=== PATIENT | female | born 1985 | race Caucasian/White ===

== ENCOUNTER 2023-08-11 18:07 | Inpatient (IN) | payer OTHER, SELFPAY ==
--- NOTE | ~2023-08-11 | XR_ITS ---
EXAMINATION: PORTABLE CHEST 1 VIEW CLINICAL INFORMATION: Central line. COMPARISON: No recent pertinent prior studies are available for comparison. TECHNIQUE: Portable frontal view of the chest was obtained. FINDINGS: Lungs are hypoexpanded with basilar ectatic change. No significant effusion, edema, or pneumothorax. Right IJ central venous catheter tip overlying the proximal right atrium. Cardiac and mediastinal silhouettes within normal limits for size. No acute bony abnormality. XR/XR chest 1V IMPRESSION: Right IJ central venous catheter tip overlying the proximal right atrium. No pneumothorax. Hypoexpanded lungs with basilar atelectasis.
[2023-08-11 18:09] VITALS: BP 113/72; PULSE 105; RESP 18; TEMP 36.8; O2SAT 98; BMI 31.6
--- NOTE | 2023-08-11 18:10 | ED_ITS ---
HPI - General Adult General Chief complaint: ETOH/Substance Use Stated complaint: alcohol withdrawal Time Seen by Provider: 08/11/23 18:48 Source: patient Mode of arrival: ambulatory Limitations: no limitations History of Present Illness HPI narrative: Patient with history of alcohol abuse disorder since teenage drinks about 30 shots of vodka every day for last few days has decreased amount of vodka last drink was about 15 hours ago came to the ER as she was hallucinating and felt that she was in alcohol withdrawal patient does have history of alcohol withdrawal seizure but no seizure this time patient also been very nauseated and vomiting nonbloody patient's sister mom went to patient's house and found her very sleepy lethargic barely responsive Related Data Home Medications Medication Instructions Recorded Confirmed gabapentin 300 mg capsule 300 mg PO TID 08/12/23 multivitamin 1 tab PO DAILY 08/12/23 08/12/23 quetiapine 100 mg tablet 100 mg PO BEDTIME PRN Anxiety 08/12/23 08/12/23 Allergies Allergy/AdvReac Type Severity Reaction Status Date / Time lamotrigine [From LAMICTAL] Allergy Unknown HIVES Verified 08/11/23 18:17 oxycodone [From Percocet] Allergy Gastrointestinal Verified 08/11/23 18:19 Upset acetaminophen AdvReac Gastrointestinal Verified 08/11/23 18:19 Upset Review of Systems 2 Review of Systems: Yes all other systems are reviewed and are negative PMFSH Past Medical History Medical History Mood disorder Alcohol use disorder Social History Social History Household Members: None Housing: Apartment Do you presently have visiting nurse or other home services: No Alcohol intake: current Alcohol intake frequency: 3 or more drinks per day Patient Tobacco Use Status: Never used Tobacco Smoked in Last 30 Days: Yes e-Cigarette/Vaping Use: Currently Using Frequency of e-Cigarette/Vaping Use: few times a day Use of substances other than those prescribed or required for medical reasons: No Have you been hit, kicked, punched, or otherwise hurt by someone within the past year? If so, by whom?: No Do you feel safe in your current relationship?: No Current Relationship Is there a partner from a previous relationship who is making you feel unsafe now?: No Are you made to feel afraid or neglected: No Advance Directives: Yes Advance Directives on File: Yes Advance Directives Date on File: 08/12/23 Do you have thoughts of harming others: None Do you have a plan to hurt others: No Plan Recently lost weight without trying: No Eating poorly because of decreased appetite: Yes Nutrition Risks: No Nutritional Risk Patient : No Physical Exam ED Vital Signs: Vital Signs - 24 hr 08/12/23 01:18 08/12/23 04:24 08/12/23 06:35 Temperature 98.4 F 98.6 F Pulse Rate 99 109 H 107 H Respiratory Rate 18 17 Blood Pressure 108/71 120/70 111/70 Pulse Oximetry 98 99 Oxygen Delivery Method Room Air Room Air 08/12/23 07:42 Temperature 98.5 F Pulse Rate 98 Respiratory Rate 17 Blood Pressure 119/78 Pulse Oximetry 98 Oxygen Delivery Method Room Air BMI result Body Mass Index 31.6 Appearance: Alert. Oriented X3. Anxious Eyes: PERRLA, No Nystagmus ENT: Pharynx normal. Oral Mucosa dry++ no tongue bite Neck: Normal inspection. Neck supple. CVS: Normal heart rate and rhythm. Pulses normal. Respiratory: No respiratory distress. Equal air entry bilateral, no wheezing/rales/rhonchi Abdomen: Soft and nontender. Bowel sounds are present, no mass palpable, no CVA tenderness Skin: Skin warm and dry. Normal skin color. Normal skin turgor. Extremities: No lower extremity edema. No calf tenderness Neuro: Oriented X 3. No motor deficit. No sensory deficit.No cerebellar signs , cranial nerves II-XII intact no current hallucination Course Course Course Narrative: This is an RME: Additional HPI, ROS, PE not included below will be deferred to primary provider. Female history of alcohol abuse currently drinks about 30 shots of vodka a day last drink unclear gets brought in by her neice who found her unresponsive at home found her laying in bed . Found smirnoffs around patient. Reports hallucinations visual and auditory, axiety, headache, nausea, vomiting Plan- ativan patient to go back CIWA Medications Administered Generic Name Dose Route Start Last Admin Trade Name Freq PRN Reason Stop Dose Admin Calcium Carbonate 500 mg 08/12/23 21:00 08/12/23 21:04 Calcium Carbonate 500 Mg Tablet PO 500 mg BID HANDY Administration Enoxaparin Sodium 40 mg 08/11/23 22:45 08/12/23 21:05 Enoxaparin Sodium 40 Mg/0.4 Ml Syringe SUBCUT 40 mg Q24H HANDY Administration Famotidine 20 mg 08/11/23 22:40 08/12/23 21:04 Famotidine 20 Mg Tablet PO 20 mg BEDTIME HANDY Administration Insulin Human Lispro 0 unit 08/12/23 07:30 08/12/23 21:22 Insulin Lispro 100 Unit/Ml 3 Ml Vial SUBCUT Not Given QIDACHS [facility] Protocol Ondansetron HCl 4 mg 08/11/23 22:32 08/12/23 18:43 Ondansetron Hcl 4 Mg/2 Ml Vial IVPUSH 4 mg Q8H PRN Administration Nausea and Vomiting Phenobarbital 45 mg 08/12/23 21:00 08/12/23 21:04 Phenobarbital 15 Mg Tablet PO 08/14/23 09:01 45 mg BID HANDY Administration Phenobarbital Sodium 130 mg 08/12/23 15:41 08/12/23 18:43 Phenobarbital Sodium 130 Mg/Ml Vial IM 130 mg ONCE PRN Administration Alcohol Withdrawal Quetiapine Fumarate 100 mg 08/12/23 21:00 08/12/23 20:09 Quetiapine Fumarate 100 Mg Tablet PO 100 mg BEDTIME PRN Administration Anxiety Sodium Chloride 3 ml 08/12/23 00:00 08/12/23 15:57 0.9 % Sodium Chloride Flush 3 Ml Syringe IVFLUSH 3 ml QSHIFT HANDY Administration Thiamine HCl 100 mg 08/12/23 09:00 08/12/23 10:05 Thiamine Hcl 100 Mg Tablet PO 100 mg DAILY HANDY Administration Discontinued Medications Generic Name Dose Route Start Last Admin Trade Name Freq PRN Reason Stop Dose Admin Sodium Chloride 1,000 mls @ 999 mls/hr 08/11/23 18:45 08/11/23 23:31 Ns IV 08/11/23 19:45 Infused .Q1H1M HANDY Infusion Potassium Chloride 10 meq in 100 mls @ 100 mls/hr 08/11/23 20:00 08/12/23 01:20 Potassium Chloride/H20 IV 08/11/23 21:59 Infused Q1H HANDY Infusion Sodium Chloride 1,000 mls @ 999 mls/hr 08/11/23 20:02 08/11/23 23:31 Ns IV 08/11/23 21:02 Infused .Q1H1M ONE Infusion Sodium Chloride 1,000 mls @ 999 mls/hr 08/11/23 22:01 08/12/23 04:29 Ns IV 08/11/23 23:01 Infused .Q1H1M ONE Infusion Potassium Chloride 10 meq in 100 mls @ 100 mls/hr 08/11/23 22:45 08/12/23 06:21 Potassium Chloride/H20 IV 08/12/23 02:44 Infused Q1H HANDY Infusion Lorazepam 2 mg 08/11/23 18:14 08/11/23 19:19 Lorazepam 2 Mg/Ml Vial IVPUSH 08/11/23 18:15 2 mg ONCE ONE Administration Lorazepam 2 mg 08/11/23 20:32 08/11/23 21:23 Lorazepam 2 Mg/Ml Vial IVPUSH 08/11/23 20:33 2 mg ONCE ONE Administration Ondansetron HCl 4 mg 08/11/23 18:11 08/11/23 19:18 Ondansetron Hcl 4 Mg/2 Ml Vial IVPUSH 08/11/23 18:12 4 mg ONCE ONE Administration Phenobarbital Sodium 228 mg 08/11/23 22:00 08/11/23 22:12 Phenobarbital Sodium 130 Mg/Ml Im Once IM 08/11/23 22:01 228 mg ONCE ONE Administration Phenobarbital Sodium 171 mg 08/12/23 01:00 08/12/23 04:23 Phenobarbital Sodium 130 Mg/Ml Vial Im Q3hx2 IM 08/12/23 04:01 171 mg Q3H HANDY Administration Phenobarbital Sodium 130 mg 08/12/23 15:41 08/12/23 15:57 Phenobarbital Sodium 130 Mg/Ml Vial IM 08/12/23 15:42 130 mg ONCE ONE Administration Potassium Chloride 20 meq 08/11/23 19:54 08/11/23 21:11 Potassium Chloride Er 20 Meq Tab.Er.Prt PO 08/11/23 19:55 20 meq ONCE ONE Administration Potassium Chloride 40 meq 08/11/23 22:39 08/11/23 23:57 Potassium Chloride Packet 20 Meq Packet PO 08/11/23 22:40 40 meq ONCE ONE Administration Thiamine HCl 100 mg 08/11/23 20:33 08/11/23 21:11 Thiamine Hcl 100 Mg Tablet PO 08/11/23 20:34 100 mg ONCE ONE Administration Procedures Central Line Placement Right IJ: Time Out Performed: Yes Patient Placed on Monitor/Pulse Ox: Yes Prep: mask, gown and gloves Central Line Prep: Chlorhexidine scrub Local Anesthetic: lidocaine 1% Amount of anesthesia used (mL): 4 Ultrasound Used for Placement: Yes Central Line Lumen Inserted: triple Post Procedure: sutured in place, good blood return, all ports aspirated, flushed, capped and sterile dressing applied Post Procedure X-Ray: tip of catheter in good position and no pneumothorax seen Patient Tolerated Procedure: no complications Medical Decision Making Medical Decision Making MDM Narrative: Patient comes here for alcohol withdrawal although her alcohol level was 416 lab workup showed potassium level of 2.4 which was replaced elevated LFT will admit patient for alcohol withdrawal started on CIWA scale on phenobarb protocol patient was very dehydrated unable to find peripheral veins central line was placed Differential Diagnosis Differential Diagnoses: The differential diagnosis associated with the presentation includes Alcohol withdrawal/ polysubstance abuse Admission/Observation Consideration of admission/observation: Escalation of care including admission/observation considered Consult Healthcare Provider Management of the patient was discussed with: Hospitalist Lab Data [facility] Lab Attestation statement: I reviewed the patient's lab results. 08/12/23 06:25 08/12/23 06:25 Labs: Lab Results 08/11/23 08/11/23 08/12/23 Range/Units 19:01 19:02 02:04 WBC 4.9 (4.8-10.8) X10*3/uL RBC 5.24 (4.20-5.50) X10*6/uL Hgb 15.6 (12.0-16.0) g/dl Hct 42.0 (37.0-47.0) % MCV 80.2 (80.0-98.0) fL MCH 29.8 (27.0-33.0) pg MCHC 37.1 H (31.0-35.0) g/dl RDW 13.2 (11.0-16.0) % Plt Count 184 (160-400) X10*3/uL MPV 10.1 (9.4-12.3) fL Immature Gran % (Auto) 0.4 (0.0-0.4) % Neut % (Auto) 50.9 (45-73) % Lymph % (Auto) 37.0 (20-40) % [place] % (Auto) 10.7 (2-11) % Eos % (Auto) 0.6 (0-4) % Baso % (Auto) 0.4 (0-2) % Lymph # (Auto) 1.8 (1.2-4.9) X10*3/uL [place] # (Auto) 0.5 (0.1-1.2) X10*3/uL Eos # (Auto) 0.0 (0.0-0.4) X10*3/uL Baso # (Auto) 0.0 (0.0-0.2) X10*3/uL Abs Immat Gran (auto) 0.02 (0.00-0.03) X10*3/uL Absolute Neuts (auto) 2.5 (2.0-8.3) x10*3/uL Absolute Nucleated RBC 0.000 (0.0-0.012) X10*3/uL Nucleated RBC % (auto) 0.0 (0.0-0.2) /100WBC Sodium 129 L (135-145) mmol/L Potassium 2.4 L* (3.3-5.1) mmol/L Chloride 85 L (96-108) mmol/L Carbon Dioxide 30 H (22-29) mmol/L Anion Gap 16 (12-20) BUN 11 (9-16) mg/dL Creatinine 0.69 (0.5-1.4) mg/dL Estim Creat Clear Calc 123.3 Estimated GFR > 60 POC Glucose (60-115) mg/dL Random Glucose 203 H (60-115) mg/dL Estimat Average Glucose mg/dL Hemoglobin A1c % (<6.0) % Osmolality (281-305) mosm/kg Calcium 7.7 L (8.4-10.2) mg/dL Magnesium 2.2 (1.6-2.6) mg/dL Total Bilirubin 1.4 H (0.0-1.0) mg/dL AST 245 H (5-31) U/L ALT 119 H (0-31) U/L Alkaline Phosphatase 103 (39-117) U/L Total Creatine Kinase 92 (26-140) U/L Total Protein 6.0 L (6.5-8.0) g/dL Albumin 3.5 (3.5-5.0) g/dL Lipase 106 H (8-78) U/L Urine Osmolality 608 (373-1093) mosm/kg Ur Random Sodium 71.0 mmol/L Urine Opiates Screen Not Detected (Not Detect) Urine Fentanyl Screen Not Detected (Not Detect) Ur Barbiturates Screen POSITIVE H (Not Detect) Ur Phencyclidine Scrn Not Detected (Not Detect) Ur Amphetamines Screen Not Detected (Not Detect) U Benzodiazepines Scrn Not Detected (Not Detect) Urine Cocaine Screen Not Detected (Not Detect) U Marijuana (THC) Screen Not Detected (Not Detect) Ethyl Alcohol 416 H* mg/dL COVID-19 ([facility]) Negative (Negative) COVID-19 Clin Com See Note 08/12/23 08/12/23 Range/Units 06:25 07:20 WBC 4.5 L (4.8-10.8) X10*3/uL RBC 4.27 (4.20-5.50) X10*6/uL Hgb 12.8 (12.0-16.0) g/dl Hct 35.2 L (37.0-47.0) % MCV 82.4 (80.0-98.0) fL MCH 30.0 (27.0-33.0) pg MCHC 36.4 H (31.0-35.0) g/dl RDW 13.8 (11.0-16.0) % Plt Count 133 L D (160-400) X10*3/uL MPV 9.9 (9.4-12.3) fL Immature Gran % (Auto) 0.2 (0.0-0.4) % Neut % (Auto) 50.1 (45-73) % Lymph % (Auto) 38.6 (20-40) % [place] % (Auto) 10.5 (2-11) % Eos % (Auto) 0.2 (0-4) % Baso % (Auto) 0.4 (0-2) % Lymph # (Auto) 1.7 (1.2-4.9) X10*3/uL [place] # (Auto) 0.5 (0.1-1.2) X10*3/uL Eos # (Auto) 0.0 (0.0-0.4) X10*3/uL Baso # (Auto) 0.0 (0.0-0.2) X10*3/uL Abs Immat Gran (auto) 0.01 (0.00-0.03) X10*3/uL Absolute Neuts (auto) 2.2 (2.0-8.3) x10*3/uL Absolute Nucleated RBC 0.000 (0.0-0.012) X10*3/uL Nucleated RBC % (auto) 0.0 (0.0-0.2) /100WBC Sodium 130 L (135-145) mmol/L Potassium 3.7 D (3.3-5.1) mmol/L Chloride 99 (96-108) mmol/L Carbon Dioxide 25 (22-29) mmol/L Anion Gap 10 L (12-20) BUN 9 (9-16) mg/dL Creatinine 0.61 (0.5-1.4) mg/dL Estim Creat Clear Calc 139.5 Estimated GFR > 60 POC Glucose 85 (60-115) mg/dL Random Glucose 107 (60-115) mg/dL Estimat Average Glucose 105 mg/dL Hemoglobin A1c % 5.3 (<6.0) % Osmolality 315 H (281-305) mosm/kg Calcium 6.7 L D (8.4-10.2) mg/dL Magnesium (1.6-2.6) mg/dL Total Bilirubin (0.0-1.0) mg/dL AST (5-31) U/L ALT (0-31) U/L Alkaline Phosphatase (39-117) U/L Total Creatine Kinase (26-140) U/L Total Protein (6.5-8.0) g/dL Albumin (3.5-5.0) g/dL Lipase (8-78) U/L Urine Osmolality (373-1093) mosm/kg Ur Random Sodium mmol/L Urine Opiates Screen (Not Detect) Urine Fentanyl Screen (Not Detect) Ur Barbiturates Screen (Not Detect) Ur Phencyclidine Scrn (Not Detect) Ur Amphetamines Screen (Not Detect) U Benzodiazepines Scrn (Not Detect) Urine Cocaine Screen (Not Detect) U Marijuana (THC) Screen (Not Detect) Ethyl Alcohol mg/dL COVID-19 ([facility]) (Negative) COVID-19 Clin Com Discharge Plan Discharge Clinical Impression: Alcohol withdrawal, Acute hypokalemia Patient Disposition: Admitted As Inpatient
[2023-08-11 19:05] LABS: MANUAL DIFF FLAG NO
[2023-08-11 19:06] LABS: Basophils Percent Auto 0.4 % (0-2); Eosinophils Percent Auto 0.6 % (0-4); Hemoglobin 15.6 g/dl (12.0-16.0); Imm Gran Abs Auto 0.02 X10*3/uL (0.00-0.03); Imm Gran Pct Auto 0.4 % (0.0-0.4); Lymphocytes Absolute Auto 1.8 X10*3/uL (1.2-4.9); Mean Corpuscular HGB Conc 37.1 g/dl (31.0-35.0); Mean Corpuscular Hemoglobin 29.8 pg (27.0-33.0); Mean Corpuscular Volume 80.2 fL (80.0-98.0); Mean Platelet Volume 10.1 fL (9.4-12.3); Monocytes Absolute Auto 0.5 X10*3/uL (0.1-1.2); Monocytes Percent Auto 10.7 % (2-11); Neutrophils Absolute Auto 2.5 x10*3/uL (2.0-8.3); Neutrophils Percent Auto 50.9 % (45-73); Platelet Count 184 X10*3/uL (160-400); Red Blood Count 5.24 X10*6/uL (4.20-5.50); Red Cell Distribution Width 13.2 % (11.0-16.0); White Blood Count 4.9 X10*3/uL (4.8-10.8)
--- NOTE | 2023-08-11 19:16 | MHC.RECOVSUP ---
? Reason for consult:ETOH o? Current location:ED16? o? Identified substance use concern:? -? Support ? Intervention: o? Community resources provided ? Plan: o? Follow up tomorrow? ? Additional information:RC spoke with this pt and discussed treatment options, pt was still intoxicated so I provided her with reocvery resources and my contact information. Please follow up tomorrow.
[2023-08-11] MEDS: ondansetron HCL 4 MG/2 ML VIAL IVPUSH (19:18)
[2023-08-11] MEDS: 0.9 % Sodium Chloride 1,000 ML 999 ML IV ×3 (19:18→23:57)
[2023-08-11] MEDS: LORazepam 2 MG/ML VIAL IVPUSH ×2 (19:19→21:23)
[2023-08-11 19:21] LABS: COVID-19 Test Negative (Negative); IDNOW Serial# BCCEAD1C
[2023-08-11 19:24] VITALS: BP 117/77; PULSE 85; RESP 18; TEMP 36.7; O2SAT 98
--- NOTE | 2023-08-11 19:26 | PC.NURSE ---
this rn assumed care of pt. pt reports she is currently in alcohol withdrawal. pt reports she has been drinking every day, 35 shots and a few beers. pt reports her last drink was this morning including over 30 shots and 2 beers. pt currently reporting headache, nausea, visual and auditory hallucinations. pt denies si/hi at this time. pt reports 8/10 pain in the right side abdomen. seizure and fall precautions in place. IV established and medicated per nov.
[2023-08-11 19:53] LABS: Alanine Aminotransferase 119 U/L (0-31); Albumin Level 3.5 g/dL (3.5-5.0); Alkaline Phosphatase 103 U/L (39-117); Anion Gap 16 (12-20); Aspartate Amino Transferase 245 U/L (5-31); Bilirubin Total 1.4 mg/dL (0.0-1.0); Blood Urea Nitrogen 11 mg/dL (9-16); Calcium 7.7 mg/dL (8.4-10.2); Carbon Dioxide 30 mmol/L (22-29); Chloride 85 mmol/L (96-108); Creatinine Clr Calc Pharmacy 123.3; Estimated Glomerular Filt Rate > 60; Ethanol 416 mg/dL; Glucose Random 203 mg/dL (60-115); Lipase 106 U/L (8-78); Magnesium 2.2 mg/dL (1.6-2.6); Potassium 2.4 mmol/L (3.3-5.1); Sodium 129 mmol/L (135-145)
[2023-08-11 21:02] VITALS: BP 109/68; PULSE 94; RESP 22; O2SAT 100
[2023-08-11] MEDS: Thiamine HCL 100 MG TABLET PO (21:11)
[2023-08-11] MEDS: Potassium Chloride ER 20 MEQ TAB.ER.PRT PO (21:11)
[2023-08-11] MEDS: Potassium Chloride/H20 10 MEQ/100 ML PIGGYBACK 100 MEQ IV ×2 (22:05→23:57)
--- NOTE | 2023-08-11 22:07 | PC.NURSE ---
delay in medication administration due to pt iv line infiltrating. Dr. Martinez at bedside to attempt ultrasound iv, ultrasound iv unsuccessful. Dr. Martinez and this RN at bedside to place central line. pt tolerated procedure well.
[2023-08-11] MEDS: PHENobarbitaL sodium 130 MG/ML IM ONCE 228 MG IM (22:12)
--- NOTE | 2023-08-11 22:44 | PM.IMHP ---
History of Present Illness Date of Service: 08/11/23 Chief Complaint: Alcohol withdrawal This is 37-year-old female with pertinent history of alcohol use disorder, mood disorder presents to the emergency department for concerns of alcohol withdrawal. Patient states she drinks about 30 shots of vodka every day. Her last drink was about 15 hours prior to presentation. She has been having nausea, nonbloody emesis, sweating, anxiety and tremors. Does have a history of alcohol withdrawal. Also has a history of alcohol withdrawal seizures. Patient states he wants to get help with alcohol use and hence decided to present to the ER. Also has associated epigastric discomfort with symptoms of gastroesophageal reflux disease. No fever, chills, chest discomfort, palpitations, shortness of breath, changes in urinary or bowel habits. In the emergency department, CIWA found to be elevated and patient was initiated on phenobarb protocol Review of Systems Constitutional: Constitutional: Reports fatigue and Reports lethargy Cardiovascular: Cardiovascular: Reports no additional cardiovascular complaints Respiratory: Respiratory: Reports no additional respiratory complaints Gastrointestinal: Gastrointestinal: Reports abdominal pain, Reports nausea and Reports vomiting Genitourinary: Genitourinary: Reports no additional female genitourinary complaints Neurologic: Reports tremor(s) Psychiatric: Psychiatric: Reports anxiety Endocrine: Endocrine: Reports fatigue [facility] Medical History Mood disorder Alcohol use disorder Pertinent family history: No family history of early CAD Social History Alcohol intake: current Alcohol intake frequency: 3 or more drinks per day Smoked in Last 30 Days: Yes Use of substances other than those prescribed or required for medical reasons: No Advance Directives: No Patient : No Meds Allergies Allergy/AdvReac Type Severity Reaction Status Date / Time lamotrigine [From LAMICTAL] Allergy Unknown HIVES Verified 08/11/23 18:17 oxycodone [From Percocet] Allergy Gastrointestinal Verified 08/11/23 18:19 Upset acetaminophen AdvReac Gastrointestinal Verified 08/11/23 18:19 Upset Active Medications: Current Medications Acetaminophen (Acetaminophen 325 Mg Tablet) 650 mg PO Q6H PRN PRN Reason: Pain, Mild (Pain Scale 1-3) Enoxaparin Sodium (Enoxaparin Sodium 40 Mg/0.4 Ml Syringe) 40 mg SUBCUT Q24H [facility] Famotidine (Famotidine 20 Mg Tablet) 20 mg PO BEDTIME [facility] Sodium Chloride (Ns) 1,000 mls @ 999 mls/hr IV .Q1H1M ONE Stop: 08/11/23 23:01 Potassium Chloride (Potassium Chloride/H20) 10 meq in 100 mls @ 100 mls/hr IV Q1H HANDY Stop: 08/12/23 02:44 Melatonin (Melatonin 3 Mg Tablet) 6 mg PO BEDTIME PRN PRN Reason: Insomnia Ondansetron HCl (Ondansetron Hcl 4 Mg/2 Ml Vial) 4 mg IVPUSH Q8H PRN PRN Reason: Nausea and Vomiting Pharmacy Consult (Consult Rx Etoh Phenob Im/Po) 1 each MISCELLANE ONCE PRN; Protocol PRN Reason: Consult order Phenobarbital (Phenobarbital 15 Mg Tablet) 45 mg PO BID [facility] Stop: 08/14/23 09:01 Phenobarbital (Phenobarbital 15 Mg Tablet) 15 mg PO BID HANDY Stop: 08/16/23 09:01 Phenobarbital (Phenobarbital 15 Mg Tablet) 15 mg PO DAILY [facility] Stop: 08/18/23 09:01 Phenobarbital Sodium (Phenobarbital Sodium 130 Mg/Ml Vial Im Q3hx2) 171 mg IM Q3H HANDY Stop: 08/12/23 04:01 Potassium Chloride (Potassium Chloride Packet 20 Meq Packet) 40 meq PO ONCE ONE Stop: 08/11/23 22:40 Sodium Chloride (0.9 % Sodium Chloride Flush 3 Ml Syringe) 3 ml IVFLUSH QSHIFT [facility] Thiamine HCl (Thiamine Hcl 100 Mg Tablet) 100 mg PO DAILY [facility] Physical Exam Vital Signs and Narrative: Vital Signs: Last Vital Signs Temp 98.1 F 08/11/23 19:24 Pulse 94 08/11/23 21:02 Resp 22 H 08/11/23 21:02 BP 109/68 08/11/23 21:02 Pulse Ox 100 08/11/23 21:02 O2 Del Method Room Air 08/11/23 21:02 BMI result Body Mass Index 31.6 Middle-aged female lying in bed in no distress Neck supple, no JVD Regular rate and rhythm, S1-S2 heard Regular breath sounds bilaterally, no wheezing or crackles appreciated Abdomen soft nontender, no guarding, no rigidity Patient is awake, alert and oriented to self, place, time and person ; no focal motor deficit Psych: Anxious No pedal edema Results Labs 08/11/23 19:01 08/11/23 19:01 Labs: Laboratory Results - last 24 hr 08/11/23 08/11/23 19:01 19:02 MCV 80.2 MCH 29.8 MCHC 37.1 H RDW 13.2 Plt Count 184 MPV 10.1 Immature Gran % (Auto) 0.4 Neut % (Auto) 50.9 Lymph % (Auto) 37.0 [place] % (Auto) 10.7 Eos % (Auto) 0.6 Baso % (Auto) 0.4 Lymph # (Auto) 1.8 [place] # (Auto) 0.5 Eos # (Auto) 0.0 Baso # (Auto) 0.0 Abs Immat Gran (auto) 0.02 Absolute Neuts (auto) 2.5 Absolute Nucleated RBC 0.000 Nucleated RBC % (auto) 0.0 Anion Gap 16 Estim Creat Clear Calc 123.3 Estimated GFR > 60 Random Glucose 203 H Calcium 7.7 L Magnesium 2.2 Total Bilirubin 1.4 H AST 245 H ALT 119 H Alkaline Phosphatase 103 Total Creatine Kinase 92 Total Protein 6.0 L Albumin 3.5 Lipase 106 H Ethyl Alcohol 416 H* COVID-19 ([facility]) Negative COVID-19 Clin Com See Note Imaging Radiologist's Impressions: Impressions Chest X-Ray 08/11/23 22:10 IMPRESSION: Right IJ central venous catheter tip overlying the proximal right atrium. No pneumothorax. Hypoexpanded lungs with basilar atelectasis. Assessment and Plan (1) Alcohol withdrawal: Status: Acute Plan This is 37-year-old female with pertinent history of alcohol use disorder, mood disorder presents to the emergency department for concerns of alcohol withdrawal. #. Alcohol withdrawal in a patient with alcohol use disorder: Patient was initiated on phenobarb protocol in the ER. Monitor CIWA. Initiating thiamine. Consulted Addiction Team, appreciate assistance #. Hyponatremia, likely hypovolemic: Monitor sodium with crystalloid resuscitation. #. Hypokalemia due to GI losses: Repleted. #. Hyperglycemia: Initiating Accu-Cheks with sliding scale insulin. Obtain A1c #. Alcoholic gastritis: Initiated famotidine #. Elevated transaminases: Likely alcoholic fatty liver disease. Outpatient follow-up Med rec pending DVT prophylaxis: Lovenox Quality Stroke Does the patient have a stroke diagnosis?: No VTE Prior VTE?: No VTE Risk Level:: Medical - moderate - high VTE Device Contraindication: Treatment Not Indicated VTE Drug Contraindication: N/A - Med Ordered
[2023-08-11] MEDS: Enoxaparin Sodium 40 MG/0.4 ML SYRINGE SUBCUT (23:57)
[2023-08-11] MEDS: Potassium Chloride Packet 20 MEQ PACKET 40 MEQ PO (23:57)
[2023-08-12] VITALS (7 sets, daily range): BP systolic 108–153; BP diastolic 70–101; PULSE 98–119; RESP 13–20; TEMP 36.9–37.1; O2SAT 96–99
[2023-08-12] MEDS: PHENobarbitaL sodium 130 MG/ML VIAL IM Q3Hx2 171 MG IM ×2 (01:19→04:23)
[2023-08-12] MEDS: Potassium Chloride/H20 10 MEQ/100 ML PIGGYBACK 100 MEQ IV ×4 (01:20→05:15)
--- NOTE | 2023-08-12 02:05 | PC.NURSE ---
pt voided at this time, linens changed and pt repositioned in bed.
[2023-08-12 02:22] LABS: Amphetamine Screen Urine Not Detected (Not Detect); Barbiturates, Urine POSITIVE (Not Detect); Benzodiazepines Screen Urine Not Detected (Not Detect); Cannabinoid Screen Urine Not Detected (Not Detect); Cocaine Screen Urine Not Detected (Not Detect); Fentanyl, urine Not Detected (Not Detect); Opiate Screen Urine Not Detected (Not Detect); Phencyclidine Screen Urine Not Detected (Not Detect)
[2023-08-12 02:38] LABS: Osmolality Urine 608 mosm/kg (373-1093)
--- NOTE | 2023-08-12 04:19 | PC.NURSE ---
delay in phenobarditol admin due to pyxis being out of medication. Diversity Specialist aware.
[2023-08-12 06:31] LABS: MANUAL DIFF FLAG NO
[2023-08-12 06:42] LABS: Basophils Percent Auto 0.4 % (0-2); Eosinophils Percent Auto 0.2 % (0-4); Hematocrit 35.2 % (37.0-47.0); Hemoglobin 12.8 g/dl (12.0-16.0); Imm Gran Abs Auto 0.01 X10*3/uL (0.00-0.03); Imm Gran Pct Auto 0.2 % (0.0-0.4); Lymphocytes Absolute Auto 1.7 X10*3/uL (1.2-4.9); Lymphocytes Percent Auto 38.6 % (20-40); Mean Corpuscular HGB Conc 36.4 g/dl (31.0-35.0); Mean Corpuscular Volume 82.4 fL (80.0-98.0); Mean Platelet Volume 9.9 fL (9.4-12.3); Monocytes Absolute Auto 0.5 X10*3/uL (0.1-1.2); Monocytes Percent Auto 10.5 % (2-11); Neutrophils Absolute Auto 2.2 x10*3/uL (2.0-8.3); Neutrophils Percent Auto 50.1 % (45-73); Red Blood Count 4.27 X10*6/uL (4.20-5.50); Red Cell Distribution Width 13.8 % (11.0-16.0); White Blood Count 4.5 X10*3/uL (4.8-10.8)
[2023-08-12 06:44] LABS: Platelet Count 133 X10*3/uL (160-400)
[2023-08-12 06:54] LABS: Anion Gap 10 (12-20); Blood Urea Nitrogen 9 mg/dL (9-16); Calcium 6.7 mg/dL (8.4-10.2); Carbon Dioxide 25 mmol/L (22-29); Chloride 99 mmol/L (96-108); Creatinine Clr Calc Pharmacy 139.5; Estimated Glomerular Filt Rate > 60; Glucose Random 107 mg/dL (60-115); Potassium 3.7 mmol/L (3.3-5.1); Sodium 130 mmol/L (135-145)
[2023-08-12 06:58] LABS: Osmolality, Serum 315 mosm/kg (281-305)
[2023-08-12 07:23] LABS: Glucose, Whole Blood 85 mg/dL (60-115)
--- NOTE | 2023-08-12 07:37 | MHC.CM.PN ---
Attempted to meet with patient in regards to discharge planning. Patient currently sleeping. No family present. Will attempt to meet with patient again. Continue to monitor for d/c needs.
[2023-08-12 07:52] LABS: Estimated Average Glucose 105 mg/dL; Hemoglobin A1c % 5.3 % (<6.0)
[2023-08-12] MEDS: Thiamine HCL 100 MG TABLET PO (10:05)
[2023-08-12] MEDS: 0.9 % Sodium Chloride Flush 3 ML SYRINGE IVFLUSH ×2 (10:05→15:57)
--- NOTE | 2023-08-12 10:38 | PHA.MEDREC ---
Addendum entered by Danica Castellano [facility] 08/12/23 10:43: Left gabapentin 300mg unconfirmed per Dr. Cowan Original Note: Pharmacy Consult ? Medication Reconciliation Pharmacy has completed the medication reconciliation. Spoke to patient at bedside, states she takes gabapentin 300mg TID, however there is no recent claim history for that strength (last carolynn 300mg filled 08/17). Patient had a more recent carolynn fill for 600mg TID in March 2023, notified provider and he asked to add the 300mg TID. Waiting on response. Patient also noted that she has a recent prescription for carbamazepine but that she did not pick it up. Pt also states taking a bunch of the normal vitamins but would not specify, added multivitamin. Pt also reports taking Seroquel 100mg only as needed two sometimes three times a day
--- NOTE | 2023-08-12 13:47 | HO.PM.IMPN ---
Subjective Subjective Date of Service: 08/12/23 Interval History: Seen and evaluated this morning sleepy and tired feels more comfortable No reported events this morning Review of Systems Altered and sleepy No willing to share much as she goes back to sleep Physical Exam Vital Signs: Vital Signs: Last Vital Signs Temp 98.5 F 08/12/23 07:42 Pulse 98 08/12/23 07:42 Resp 17 08/12/23 07:42 BP 119/78 08/12/23 07:42 Pulse Ox 98 08/12/23 07:42 O2 Del Method Room Air 08/12/23 07:42 BMI result Body Mass Index 31.6 Const: Other: Constitutional : Awake with stimulation, goes back to sleep, not in distress Neck : Normal inspection, Supple Cardiovascular : RRR, no JVP, no lower extremity edema Respiratory : good bilateral air entry, no crackles, wheezes or rhonchi Gastrointestinal: soft, lax, Normal bowel sounds, Non tender Skin : Warm, Dry Neurological : Alert with stimulation & oriented to self and doesnt answer all questions, No focal deficit Objective Data Active Medications Acetaminophen (Acetaminophen 325 Mg Tablet) 650 mg PO Q6H PRN PRN Reason: Pain, Mild (Pain Scale 1-3) Dextrose (Dextrose 50 % 25 Gm/50 Ml Syringe) 25 gm IVPUSH Q15M PRN; Protocol PRN Reason: per Hypoglycemia Standing Ord. Enoxaparin Sodium (Enoxaparin Sodium 40 Mg/0.4 Ml Syringe) 40 mg SUBCUT Q24H [facility] Last Admin: 08/11/23 23:57 Dose: 40 mg Documented By: MEAGHAN Famotidine (Famotidine 20 Mg Tablet) 20 mg PO BEDTIME [facility] Last Admin: 08/12/23 00:05 Dose: Not Given Documented By: MEAGHAN Non-Admin Reason: Patient Refused Glucose (Glucose Gel 15 Gm Gel..Gram.) 15 gm PO Q15M PRN; Protocol PRN Reason: per Hypoglycemia Standing Ord. Insulin Human Lispro (Insulin Lispro 100 Unit/Ml 3 Ml Vial) 0 unit SUBCUT QIDACHS [facility]; Protocol Last Admin: 08/12/23 07:42 Dose: Not Given Documented By: BHAKTI Non-Admin Reason: No Insulin Coverage Melatonin (Melatonin 3 Mg Tablet) 6 mg PO BEDTIME PRN PRN Reason: Insomnia Ondansetron HCl (Ondansetron Hcl 4 Mg/2 Ml Vial) 4 mg IVPUSH Q8H PRN PRN Reason: Nausea and Vomiting Pharmacy Consult (Consult Rx Etoh Phenob Im/Po) 1 each MISCELLANE ONCE PRN; Protocol PRN Reason: Consult order Phenobarbital (Phenobarbital 15 Mg Tablet) 45 mg PO BID [facility] Stop: 08/14/23 09:01 Phenobarbital (Phenobarbital 15 Mg Tablet) 15 mg PO BID [facility] Stop: 08/16/23 09:01 Phenobarbital (Phenobarbital 15 Mg Tablet) 15 mg PO DAILY [facility] Stop: 08/18/23 09:01 Sodium Chloride (0.9 % Sodium Chloride Flush 3 Ml Syringe) 3 ml IVFLUSH QSHIFT [facility] Last Admin: 08/12/23 10:05 Dose: 3 ml Documented By: LINDSAY Thiamine HCl (Thiamine Hcl 100 Mg Tablet) 100 mg PO DAILY [facility] Last Admin: 08/12/23 10:05 Dose: 100 mg Documented By: LINDSAY Labs 08/12/23 06:25 08/12/23 06:25 Labs: Laboratory Results - last 24 hr 08/11/23 08/11/23 08/12/23 19:01 19:02 02:04 MCV 80.2 MCH 29.8 MCHC 37.1 H RDW 13.2 Plt Count 184 MPV 10.1 Immature Gran % (Auto) 0.4 Neut % (Auto) 50.9 Lymph % (Auto) 37.0 Sunflower % (Auto) 10.7 Eos % (Auto) 0.6 Baso % (Auto) 0.4 Lymph # (Auto) 1.8 Sunflower # (Auto) 0.5 Eos # (Auto) 0.0 Baso # (Auto) 0.0 Abs Immat Gran (auto) 0.02 Absolute Neuts (auto) 2.5 Absolute Nucleated RBC 0.000 Nucleated RBC % (auto) 0.0 Anion Gap 16 Estim Creat Clear Calc 123.3 Estimated GFR > 60 POC Glucose Random Glucose 203 H Estimat Average Glucose Hemoglobin A1c % Osmolality Calcium 7.7 L Magnesium 2.2 Total Bilirubin 1.4 H AST 245 H ALT 119 H Alkaline Phosphatase 103 Total Creatine Kinase 92 Total Protein 6.0 L Albumin 3.5 Lipase 106 H Urine Osmolality 608 Ur Random Sodium 71.0 Urine Opiates Screen Not Detected Urine Fentanyl Screen Not Detected Ur Barbiturates Screen POSITIVE H Ur Phencyclidine Scrn Not Detected Ur Amphetamines Screen Not Detected U Benzodiazepines Scrn Not Detected Urine Cocaine Screen Not Detected U Marijuana (THC) Screen Not Detected Ethyl Alcohol 416 H* COVID-19 ([facility]) Negative COVID-19 Clin Com See Note 08/12/23 08/12/23 06:25 07:20 MCV 82.4 MCH 30.0 MCHC 36.4 H RDW 13.8 Plt Count 133 L D MPV 9.9 Immature Gran % (Auto) 0.2 Neut % (Auto) 50.1 Lymph % (Auto) 38.6 Sunflower % (Auto) 10.5 Eos % (Auto) 0.2 Baso % (Auto) 0.4 Lymph # (Auto) 1.7 Sunflower # (Auto) 0.5 Eos # (Auto) 0.0 Baso # (Auto) 0.0 Abs Immat Gran (auto) 0.01 Absolute Neuts (auto) 2.2 Absolute Nucleated RBC 0.000 Nucleated RBC % (auto) 0.0 Anion Gap 10 L Estim Creat Clear Calc 139.5 Estimated GFR > 60 POC Glucose 85 Random Glucose 107 Estimat Average Glucose 105 Hemoglobin A1c % 5.3 Osmolality 315 H Calcium 6.7 L D Magnesium Total Bilirubin AST ALT Alkaline Phosphatase Total Creatine Kinase Total Protein Albumin Lipase Urine Osmolality Ur Random Sodium Urine Opiates Screen Urine Fentanyl Screen Ur Barbiturates Screen Ur Phencyclidine Scrn Ur Amphetamines Screen U Benzodiazepines Scrn Urine Cocaine Screen U Marijuana (THC) Screen Ethyl Alcohol COVID-19 ([facility]) COVID-19 Clin Com Assessment and Plan (1) Acute hypokalemia: Status: Acute (2) Alcohol withdrawal: Status: Acute Plan This is 37-year-old female with pertinent history of alcohol use disorder, mood disorder presents to the emergency department for concerns of alcohol withdrawal. # Alcohol withdrawal in a patient with alcohol use disorder phenobarb protocol Monitor CIWA. thiamine. Consult Addiction Team # Hyponatremia, likely hypovolemic Monitor sodium with crystalloid resuscitation. # Hypokalemia due to GI losses: Repleted. # Hyperglycemia likely from alcohol Initiating Accu-Cheks with sliding scale insulin. 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 Quality Stroke Does the patient have a stroke diagnosis?: No VTE Prior VTE?: No VTE Risk Level:: Medical - moderate - high VTE Device Contraindication: Treatment Not Indicated VTE Drug Contraindication: N/A - Med Ordered
[2023-08-12 13:57] LABS: Glucose, Whole Blood 79 mg/dL (60-115)
[2023-08-12] MEDS: PHENobarbitaL sodium 130 MG/ML VIAL IM ×2 (15:57→18:43)
[2023-08-12 18:16] LABS: Glucose, Whole Blood 106 mg/dL (60-115)
[2023-08-12] MEDS: ondansetron HCL 4 MG/2 ML VIAL IVPUSH (18:43)
[2023-08-12] MEDS: QUEtiapine Fumarate 100 MG TABLET PO (20:09)
[2023-08-12] MEDS: Famotidine 20 MG TABLET PO (21:04)
[2023-08-12] MEDS: PHENobarbitaL 15 MG TABLET 45 MG PO (21:04)
[2023-08-12] MEDS: Enoxaparin Sodium 40 MG/0.4 ML SYRINGE SUBCUT (21:05)
[2023-08-12 21:18] LABS: Glucose, Whole Blood 150 mg/dL (60-115)
[2023-08-13] MEDS: 0.9 % Sodium Chloride Flush 3 ML SYRINGE IVFLUSH ×4 (00:05→20:21)
[2023-08-13 03:33] VITALS: BP 123/61; PULSE 113; RESP 18; TEMP 36.3; O2SAT 96
[2023-08-13 05:19] VITALS: BMI 31.8
[2023-08-13 07:29] LABS: Glucose, Whole Blood 88 mg/dL (60-115)
[2023-08-13 08:00] VITALS: BP 126/58; PULSE 95; RESP 18; TEMP 36.8; O2SAT 96
[2023-08-13] MEDS: PHENobarbitaL 15 MG TABLET 45 MG PO ×2 (09:09→20:21)
[2023-08-13] MEDS: Thiamine HCL 100 MG TABLET PO (09:10)
[2023-08-13 11:34] LABS: Glucose, Whole Blood 156 mg/dL (60-115)
--- NOTE | 2023-08-13 12:01 | HO.PM.IMPN ---
Subjective Subjective Date of Service: 08/13/23 Interval History: Seen and evaluated this morning more alert but lethargic and anxious tolerating PO No reported events this morning Review of Systems Review of Systems: Yes all other systems are reviewed and are negative Physical Exam Vital Signs: Vital Signs: Last Vital Signs Temp 98.3 F 08/13/23 08:00 Pulse 95 08/13/23 08:00 Resp 18 08/13/23 08:00 BP 126/58 L 08/13/23 08:00 Pulse Ox 96 08/13/23 08:00 O2 Del Method Room Air 08/13/23 08:00 BMI result Body Mass Index 31.8 Const: Other: Constitutional : Awake with stimulation, more interactive, anxious, not in distress Neck : Normal inspection, Supple Cardiovascular : RRR, no JVP, no lower extremity edema Respiratory : good bilateral air entry, no crackles, wheezes or rhonchi Gastrointestinal: soft, lax, Normal bowel sounds, Non tender Skin : Warm, Dry Neurological : Alert with stimulation & oriented to self and place, No focal deficit Objective Data Active Medications Acetaminophen (Acetaminophen 325 Mg Tablet) 650 mg PO Q6H PRN PRN Reason: Pain, Mild (Pain Scale 1-3) Calcium Carbonate (Calcium Carbonate 500 Mg Tablet) 500 mg PO BID [facility] Last Admin: 08/13/23 09:10 Dose: 500 mg Documented By: ANDRÉS Dextrose (Dextrose 50 % 25 Gm/50 Ml Syringe) 25 gm IVPUSH Q15M PRN; Protocol PRN Reason: per Hypoglycemia Standing Ord. Enoxaparin Sodium (Enoxaparin Sodium 40 Mg/0.4 Ml Syringe) 40 mg SUBCUT Q24H [facility] Last Admin: 08/12/23 21:05 Dose: 40 mg Documented By: SIMON Famotidine (Famotidine 20 Mg Tablet) 20 mg PO BEDTIME [facility] Last Admin: 08/12/23 21:04 Dose: 20 mg Documented By: SIMON Glucose (Glucose Gel 15 Gm Gel..Gram.) 15 gm PO Q15M PRN; Protocol PRN Reason: per Hypoglycemia Standing Ord. Insulin Human Lispro (Insulin Lispro 100 Unit/Ml 3 Ml Vial) 0 unit SUBCUT QIDACHS [facility]; Protocol Last Admin: 08/13/23 11:36 Dose: Not Given Documented By: HO.MOOREA Non-Admin Reason: No Insulin Coverage Melatonin (Melatonin 3 Mg Tablet) 6 mg PO BEDTIME PRN PRN Reason: Insomnia Ondansetron HCl (Ondansetron Hcl 4 Mg/2 Ml Vial) 4 mg IVPUSH Q8H PRN PRN Reason: Nausea and Vomiting Last Admin: 08/12/23 18:43 Dose: 4 mg Documented By: LINDSAY Pharmacy Consult (Consult Rx Etoh Phenob Im/Po) 1 each MISCELLANE ONCE PRN; Protocol PRN Reason: Consult order Phenobarbital (Phenobarbital 15 Mg Tablet) 45 mg PO BID [facility] Stop: 08/14/23 09:01 Last Admin: 08/13/23 09:09 Dose: 45 mg Documented By: ANDRÉS Phenobarbital (Phenobarbital 15 Mg Tablet) 15 mg PO BID [facility] Stop: 08/16/23 09:01 Phenobarbital (Phenobarbital 15 Mg Tablet) 15 mg PO DAILY [facility] Stop: 08/18/23 09:01 Phenobarbital Sodium (Phenobarbital Sodium 130 Mg/Ml Vial) 130 mg IM ONCE ONE Stop: 08/13/23 12:01 Phenobarbital Sodium (Phenobarbital Sodium 130 Mg/Ml Vial) 130 mg IM ONCE PRN PRN Reason: Alcohol Withdrawal Quetiapine Fumarate (Quetiapine Fumarate 100 Mg Tablet) 100 mg PO BEDTIME PRN PRN Reason: Anxiety Last Admin: 08/12/23 20:09 Dose: 100 mg Documented By: VIDAL Sodium Chloride (0.9 % Sodium Chloride Flush 3 Ml Syringe) 3 ml IVFLUSH QSHIFT [facility] Last Admin: 08/13/23 09:09 Dose: 3 ml Documented By: ANDRÉS Thiamine HCl (Thiamine Hcl 100 Mg Tablet) 100 mg PO DAILY [facility] Last Admin: 08/13/23 09:10 Dose: 100 mg Documented By: ANDRÉS Tramadol HCl (Tramadol Hcl 50 Mg Tablet) 25 mg PO Q6H PRN PRN Reason: Pain, Severe (Pain Scale 7-10) Labs 08/12/23 06:25 08/12/23 06:25 Labs: Laboratory Results - last 24 hr 08/12/23 08/12/23 08/12/23 13:53 18:11 21:14 POC Glucose 79 106 150 H 08/13/23 08/13/23 07:26 11:30 POC Glucose 88 156 H Assessment and Plan (1) Acute hypokalemia: Status: Acute (2) Alcohol withdrawal: Status: Acute (3) Alcohol use disorder: Status: Acute Plan This is 37-year-old female with pertinent history of alcohol use disorder, mood disorder presents to the emergency department for concerns of alcohol withdrawal. # Alcohol withdrawal in a patient with alcohol use disorder phenobarb protocol Monitor CIWA. give extra doses of IM PHenobarb Continue thiamine Consult Addiction Team # Hyponatremia, likely hypovolemic Na at 130 Monitor sodium with crystalloid resuscitation. # Hypokalemia due to GI losses: Repleted. # Hyperglycemia likely from alcohol Initiating Accu-Cheks with sliding scale insulin. 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 Quality Stroke Does the patient have a stroke diagnosis?: No VTE Prior VTE?: No VTE Risk Level:: Medical - moderate - high VTE Device Contraindication: Treatment Not Indicated VTE Drug Contraindication: N/A - Med Ordered
[2023-08-13] MEDS: PHENobarbitaL sodium 130 MG/ML VIAL IM ×2 (12:12→17:13)
[2023-08-13] MEDS: 0.9 % Sodium Chloride 500 ML 999 ML IV (12:15)
--- NOTE | 2023-08-13 13:40 | MHC.RECOVRN ---
RN met with patient in room 460-1 for Addiction Medicine Consult for alcohol use disorder. Patient seated in her bed, flat affect. When patient learned my role, she grew defensive and stated she did not want to speak with anyone in Recovery. She stated she is sick of people harassing her about detox all the time . RN assured her the consult is to ensure she is handling/managing her symptoms of withdrawal with comfort and ease. Resources and additional information is available if needed/wanted. Patient states I'm angry. I'm getting angry. My nurse is just gone. She's not coming in here! She reported feeling anxious and stated if she didn't get something for anxiety soon she was going to sign out AMA to go drink. She voiced feeling angry, sweaty, anxious, body aches, and chills . NN met with her covering nurse, who had already reached out to Dr. Cowan to request a PRN order. RN also sent request to hospitalist- he agreed to order. Patient declined to answer additional questions. Per chart review- first drink at age 20. She drinks 35 shots of vodka and beers per day. She's had inpatient recovery in the past. Longest period of abstinence was ~6 months Patient is not interested in additional recovery efforts at this time, advised to notify her floor nurse if she changes her mind.
[2023-08-13 15:49] LABS: Glucose, Whole Blood 148 mg/dL (60-115)
[2023-08-13 16:00] VITALS: BP 132/90; PULSE 112; RESP 18; TEMP 36.1; O2SAT 98
[2023-08-13] MEDS: traMADoL HCL 50 MG TABLET 25 MG PO (19:49)
[2023-08-13 19:51] VITALS: BP 138/88; PULSE 100; RESP 18; TEMP 35.8; O2SAT 97
[2023-08-13] MEDS: Famotidine 20 MG TABLET PO (20:21)
[2023-08-13] MEDS: QUEtiapine Fumarate 100 MG TABLET PO (21:03)
[2023-08-13] MEDS: Enoxaparin Sodium 40 MG/0.4 ML SYRINGE SUBCUT (21:03)
[2023-08-13 21:12] LABS: Glucose, Whole Blood 149 mg/dL (60-115)
[2023-08-14 00:09] VITALS: BP 132/75; PULSE 112; RESP 20; TEMP 36.4; O2SAT 98
[2023-08-14] MEDS: PHENobarbitaL sodium 65 MG/ML VIAL IM (02:25)
[2023-08-14 03:05] VITALS: BP 145/68; PULSE 100; RESP 18; TEMP 36.6; O2SAT 98
[2023-08-14] MEDS: hydrOXYzine HCL 25 MG TABLET PO (04:49)
[2023-08-14 06:23] LABS: Alanine Aminotransferase 130 U/L (0-31); Albumin Level 2.8 g/dL (3.5-5.0); Alkaline Phosphatase 132 U/L (39-117); Aspartate Amino Transferase 208 U/L (5-31); Bilirubin Direct 0.6 mg/dL (0.0-0.5)
[2023-08-14 06:25] LABS: Anion Gap 12 (12-20); Blood Urea Nitrogen 6 mg/dL (9-16); Carbon Dioxide 25 mmol/L (22-29); Chloride 102 mmol/L (96-108); Creatinine Clr Calc Pharmacy 123.8; Estimated Glomerular Filt Rate > 60; Glucose Random 122 mg/dL (60-115); Potassium 2.9 mmol/L (3.3-5.1); Sodium 136 mmol/L (135-145)
[2023-08-14 06:39] LABS: Hematocrit 34.6 % (37.0-47.0); Hemoglobin 12.2 g/dl (12.0-16.0); Mean Corpuscular HGB Conc 35.3 g/dl (31.0-35.0); Mean Corpuscular Hemoglobin 30.7 pg (27.0-33.0); Mean Corpuscular Volume 86.9 fL (80.0-98.0); Red Blood Count 3.98 X10*6/uL (4.20-5.50); White Blood Count 4.2 X10*3/uL (4.8-10.8)
[2023-08-14 06:58] LABS: Platelet Count 80 X10*3/uL (160-400)
[2023-08-14 07:05] VITALS: BP 136/90; PULSE 101; RESP 18; TEMP 36.6; O2SAT 97
[2023-08-14 07:28] LABS: Glucose, Whole Blood 123 mg/dL (60-115)
--- NOTE | 2023-08-14 08:31 | MHC.CM.PN ---
NATHANAEL 08/[birth year]/23 FEMALE 37 DX ETOH LIVES BY HERSELF. 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 DECLINES RECOVERY TEAM INTERVENTIONS. DP HOME SELF CARE. SHE WILL ARRANGE TRANSPORT AT [place]. COPY REQUESTED HCP.
[2023-08-14] MEDS: 0.9 % Sodium Chloride Flush 3 ML SYRINGE IVFLUSH ×2 (09:34→16:00)
[2023-08-14] MEDS: Potassium Chloride Packet 20 MEQ PACKET 40 MEQ PO (09:34)
[2023-08-14] MEDS: Thiamine HCL 100 MG TABLET PO (09:36)
[2023-08-14] MEDS: PHENobarbitaL 15 MG TABLET 45 MG PO (09:36)
[2023-08-14] MEDS: PHENobarbitaL sodium 130 MG/ML VIAL IM ×3 (09:37→21:23)
[2023-08-14 11:25] LABS: Glucose, Whole Blood 101 mg/dL (60-115)
--- NOTE | 2023-08-14 12:30 | P.PNIM_ITS ---
Subjective Subjective Date of Service: 08/14/23 Interval History: Seen and evaluated this morning more alert and interactive feels anxious and having tremors tolerating PO Review of Systems Review of Systems: Yes all other systems are reviewed and are negative Physical Exam 2 Vital Signs: Vital Signs: Last Vital Signs Temp 98 F 08/14/23 07:05 Pulse 101 H 08/14/23 07:05 Resp 18 08/14/23 07:05 BP 136/90 H 08/14/23 07:05 Pulse Ox 97 08/14/23 07:05 O2 Del Method Room Air 08/14/23 07:05 BMI result Body Mass Index 31.8 Const: Other: Constitutional : Awake with stimulation, more interactive, anxious, not in distress Neck : Normal inspection, Supple Cardiovascular : RRR, no JVP, no lower extremity edema Respiratory : good bilateral air entry, no crackles, wheezes or rhonchi Gastrointestinal: soft, lax, Normal bowel sounds, Non tender Skin : Warm, Dry Neurological : Alert & oriented to self and place, No focal deficit Objective Data Active Medications Acetaminophen (Acetaminophen 325 Mg Tablet) 650 mg PO Q6H PRN PRN Reason: Pain, Mild (Pain Scale 1-3) Calcium Carbonate (Calcium Carbonate 500 Mg Tablet) 500 mg PO BID [facility] Last Admin: 08/14/23 09:36 Dose: 500 mg Documented By: ANDRÉS Dextrose (Dextrose 50 % 25 Gm/50 Ml Syringe) 25 gm IVPUSH Q15M PRN; Protocol PRN Reason: per Hypoglycemia Standing Ord. Enoxaparin Sodium (Enoxaparin Sodium 40 Mg/0.4 Ml Syringe) 40 mg SUBCUT Q24H [facility] Last Admin: 08/13/23 21:03 Dose: 40 mg Documented By: RAMESH Famotidine (Famotidine 20 Mg Tablet) 20 mg PO BEDTIME [facility] Last Admin: 08/13/23 20:21 Dose: 20 mg Documented By: RAMESH Glucose (Glucose Gel 15 Gm Gel..Gram.) 15 gm PO Q15M PRN; Protocol PRN Reason: per Hypoglycemia Standing Ord. Hydroxyzine HCl (Hydroxyzine Hcl 50 Mg Tablet) 50 mg PO Q6H PRN PRN Reason: anxiety/restlessness Insulin Human Lispro (Insulin Lispro 100 Unit/Ml 3 Ml Vial) 0 unit SUBCUT QIDACHS [facility]; Protocol Last Admin: 08/14/23 11:54 Dose: Not Given Documented By: ANDRÉS Non-Admin Reason: No Insulin Coverage Melatonin (Melatonin 3 Mg Tablet) 6 mg PO BEDTIME PRN PRN Reason: Insomnia Ondansetron HCl (Ondansetron Hcl 4 Mg/2 Ml Vial) 4 mg IVPUSH Q8H PRN PRN Reason: Nausea and Vomiting Last Admin: 08/12/23 18:43 Dose: 4 mg Documented By: LINDSAY Pharmacy Consult (Consult Rx Etoh Phenob Im/Po) 1 each MISCELLANE ONCE PRN; Protocol PRN Reason: Consult order Phenobarbital (Phenobarbital 15 Mg Tablet) 15 mg PO BID [facility] Stop: 08/16/23 09:01 Phenobarbital (Phenobarbital 15 Mg Tablet) 15 mg PO DAILY [facility] Stop: 08/18/23 09:01 Phenobarbital Sodium (Phenobarbital Sodium 130 Mg/Ml Vial) 130 mg IM ONCE PRN PRN Reason: Alcohol Withdrawal Last Admin: 08/13/23 17:13 Dose: 130 mg Documented By: ANDRÉS Quetiapine Fumarate (Quetiapine Fumarate 100 Mg Tablet) 100 mg PO BEDTIME PRN PRN Reason: Anxiety Last Admin: 08/13/23 21:03 Dose: 100 mg Documented By: RAMESH Sodium Chloride (0.9 % Sodium Chloride Flush 3 Ml Syringe) [facility] Last Admin: 08/14/23 09:34 Dose: 3 ml Documented By: ANDRÉS Thiamine HCl (Thiamine Hcl 100 Mg Tablet) 100 mg PO DAILY [facility] Last Admin: 08/14/23 09:36 Dose: 100 mg Documented By: ANDRÉS Tramadol HCl (Tramadol Hcl 50 Mg Tablet) 25 mg PO Q6H PRN PRN Reason: Pain, Severe (Pain Scale 7-10) Last Admin: 08/13/23 19:49 Dose: 25 mg Documented By: RAMESH Labs 08/14/23 05:43 08/14/23 05:43 Labs: Laboratory Results - last 24 hr 08/13/23 08/13/23 08/14/23 15:46 20:26 05:43 MCV 86.9 MCH 30.7 MCHC 35.3 H RDW 15.0 Plt Count 80 L D MPV 11.0 Absolute Nucleated RBC 0.000 Nucleated RBC % (auto) 0.0 Anion Gap 12 Estim Creat Clear Calc 123.8 Estimated GFR > 60 POC Glucose 148 H 149 H Random Glucose 122 H Calcium 8.0 L D Total Bilirubin 1.0 Direct Bilirubin 0.6 H AST 208 H ALT 130 H Alkaline Phosphatase 132 H Total Protein 5.0 L Albumin 2.8 L 08/14/23 08/14/23 07:25 11:22 MCV MCH MCHC RDW Plt Count MPV Absolute Nucleated RBC Nucleated RBC % (auto) Anion Gap Estim Creat Clear Calc Estimated GFR POC Glucose 123 H 101 Random Glucose Calcium Total Bilirubin Direct Bilirubin AST ALT Alkaline Phosphatase Total Protein Albumin Assessment and Plan (1) Acute hypokalemia: Status: Acute (2) Alcohol withdrawal: Status: Acute (3) Alcohol use disorder: Status: Acute Plan This is 37-year-old female with pertinent history of alcohol use disorder, mood disorder presents to the emergency department for concerns of alcohol withdrawal. # Alcohol withdrawal in a patient with alcohol use disorder Phenobarb protocol Monitor CIWA Give extra doses of IM PHenobarb Continue thiamine Consult Addiction Team # Hyponatremia, likely hypovolemic Na at 130 Monitor sodium with crystalloid resuscitation # Hypokalemia due to GI losses: Repleted follow BMP # Hyperglycemia likely from alcohol Initiating Accu-Cheks with sliding scale insulin. 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 Quality Stroke Does the patient have a stroke diagnosis?: No VTE Prior VTE?: No VTE Risk Level:: Medical - moderate - high VTE Device Contraindication: Treatment Not Indicated VTE Drug Contraindication: N/A - Med Ordered
[2023-08-14 16:01] VITALS: BP 120/75; PULSE 98; RESP 18; TEMP 36.7; O2SAT 98
[2023-08-14 16:30] LABS: Glucose, Whole Blood 125 mg/dL (60-115)
[2023-08-14 20:00] VITALS: BP 145/92; PULSE 95; RESP 20; TEMP 36.7; O2SAT 98
[2023-08-14] MEDS: PHENobarbitaL 15 MG TABLET PO (20:07)
[2023-08-14] MEDS: Famotidine 20 MG TABLET PO (20:07)
[2023-08-14 20:27] LABS: Glucose, Whole Blood 119 mg/dL (60-115)
[2023-08-14] MEDS: Enoxaparin Sodium 40 MG/0.4 ML SYRINGE SUBCUT (21:06)
[2023-08-14] MEDS: hydrOXYzine HCL 50 MG TABLET PO (21:06)
[2023-08-14] MEDS: ondansetron HCL 4 MG/2 ML VIAL IVPUSH (21:23)
[2023-08-15] MEDS: QUEtiapine Fumarate 100 MG TABLET PO (01:57)
[2023-08-15] MEDS: traMADoL HCL 50 MG TABLET 25 MG PO ×2 (01:58→09:05)
[2023-08-15 03:14] VITALS: BP 137/93; PULSE 110; RESP 16; TEMP 36.2; O2SAT 98
[2023-08-15] MEDS: PHENobarbitaL sodium 130 MG/ML VIAL IM ×2 (03:32→13:06)
[2023-08-15] MEDS: hydrOXYzine HCL 50 MG TABLET PO ×2 (05:28→21:06)
[2023-08-15] MEDS: ondansetron HCL 4 MG/2 ML VIAL IVPUSH (05:29)
[2023-08-15] MEDS: LORazepam 2 MG/ML VIAL 1 MG IVPUSH (05:47)
[2023-08-15 07:47] LABS: Glucose, Whole Blood 102 mg/dL (60-115)
[2023-08-15 07:49] VITALS: BP 125/70; PULSE 104; RESP 18; TEMP 36.3; O2SAT 98
[2023-08-15 08:57] LABS: Anion Gap 8 (12-20); Blood Urea Nitrogen 5 mg/dL (9-16); Calcium 8.5 mg/dL (8.4-10.2); Carbon Dioxide 29 mmol/L (22-29); Chloride 102 mmol/L (96-108); Creatinine Clr Calc Pharmacy 110.9; Estimated Glomerular Filt Rate > 60; Glucose Random 94 mg/dL (60-115); Sodium 136 mmol/L (135-145)
[2023-08-15] MEDS: PHENobarbitaL 15 MG TABLET PO ×2 (09:05→20:59)
[2023-08-15] MEDS: Thiamine HCL 100 MG TABLET PO (09:05)
[2023-08-15] MEDS: 0.9 % Sodium Chloride Flush 3 ML SYRINGE IVFLUSH (09:06)
[2023-08-15 11:37] LABS: Glucose, Whole Blood 111 mg/dL (60-115)
--- NOTE | 2023-08-15 11:56 | P.PNIM_ITS ---
Subjective Subjective Date of Service: 08/15/23 Interval History: Seen and evaluated this morning more alert and interactive but still scoring 5-6 on CIWA report weakness feels anxious tolerating PO Review of Systems Review of Systems: Yes all other systems are reviewed and are negative Physical Exam 2 Vital Signs: Vital Signs: Last Vital Signs Temp 97.4 F 08/15/23 07:49 Pulse 104 H 08/15/23 07:49 Resp 18 08/15/23 07:49 BP 125/70 08/15/23 07:49 Pulse Ox 98 08/15/23 07:49 O2 Del Method Room Air 08/15/23 07:49 BMI result Body Mass Index 31.8 Const: Other: Constitutional : alert , more interactive, anxious, weak, not in distress Neck : Normal inspection, Supple Cardiovascular : RRR, no JVP, no lower extremity edema Respiratory : good bilateral air entry, no crackles, wheezes or rhonchi Gastrointestinal: soft, lax, Normal bowel sounds, Non tender Skin : Warm, Dry Neurological : Alert & oriented to self and place, No focal deficit Objective Data Active Medications Acetaminophen (Acetaminophen 325 Mg Tablet) 650 mg PO Q6H PRN PRN Reason: Pain, Mild (Pain Scale 1-3) Calcium Carbonate (Calcium Carbonate 500 Mg Tablet) 500 mg PO BID [facility] Last Admin: 08/15/23 09:05 Dose: 500 mg Documented By: MARZENA Dextrose (Dextrose 50 % 25 Gm/50 Ml Syringe) 25 gm IVPUSH Q15M PRN; Protocol PRN Reason: per Hypoglycemia Standing Ord. Enoxaparin Sodium (Enoxaparin Sodium 40 Mg/0.4 Ml Syringe) 40 mg SUBCUT Q24H [facility] Last Admin: 08/14/23 21:06 Dose: 40 mg Documented By: ASAF Famotidine (Famotidine 20 Mg Tablet) 20 mg PO BEDTIME [facility] Last Admin: 08/14/23 20:07 Dose: 20 mg Documented By: ASAF Glucose (Glucose Gel 15 Gm Gel..Gram.) 15 gm PO Q15M PRN; Protocol PRN Reason: per Hypoglycemia Standing Ord. Hydroxyzine HCl (Hydroxyzine Hcl 50 Mg Tablet) 50 mg PO Q6H PRN PRN Reason: anxiety/restlessness Last Admin: 08/15/23 05:28 Dose: 50 mg Documented By: ASAF Insulin Human Lispro (Insulin Lispro 100 Unit/Ml 3 Ml Vial) 0 unit SUBCUT QIDACHS [facility]; Protocol Last Admin: 08/15/23 09:01 Dose: Not Given Documented By: MARZENA Non-Admin Reason: No Insulin Coverage Melatonin (Melatonin 3 Mg Tablet) 6 mg PO BEDTIME PRN PRN Reason: Insomnia Ondansetron HCl (Ondansetron Hcl 4 Mg/2 Ml Vial) 4 mg IVPUSH Q8H PRN PRN Reason: Nausea and Vomiting Last Admin: 08/15/23 05:29 Dose: 4 mg Documented By: ASAF Pharmacy Consult (Consult Rx Etoh Phenob Im/Po) 1 each MISCELLANE ONCE PRN; Protocol PRN Reason: Consult order Phenobarbital (Phenobarbital 15 Mg Tablet) 15 mg PO BID [facility] Stop: 08/16/23 09:01 Last Admin: 08/15/23 09:05 Dose: 15 mg Documented By: MARZENA Phenobarbital (Phenobarbital 15 Mg Tablet) 15 mg PO DAILY [facility] Stop: 08/18/23 09:01 Phenobarbital Sodium (Phenobarbital Sodium 130 Mg/Ml Vial) 130 mg IM ONCE PRN PRN Reason: Alcohol Withdrawal Quetiapine Fumarate (Quetiapine Fumarate 100 Mg Tablet) 100 mg PO BEDTIME PRN PRN Reason: Anxiety Last Admin: 08/15/23 01:57 Dose: 100 mg Documented By: ASAF Sodium Chloride (0.9 % Sodium Chloride Flush 3 Ml Syringe) [facility] Last Admin: 08/15/23 09:06 Dose: 3 ml Documented By: MARZENA Thiamine HCl (Thiamine Hcl 100 Mg Tablet) 100 mg PO DAILY [facility] Last Admin: 08/15/23 09:05 Dose: 100 mg Documented By: MARZENA Tramadol HCl (Tramadol Hcl 50 Mg Tablet) 25 mg PO Q6H PRN PRN Reason: Pain, Severe (Pain Scale 7-10) Last Admin: 08/15/23 09:05 Dose: 25 mg Documented By: MARZENA Labs 08/14/23 05:43 08/15/23 08:02 Labs: Laboratory Results - last 24 hr 11/19/23 11/19/23 11/20/23 16:25 20:24 07:40 Hold Purple Top SEE NOTE Anion Gap Estim Creat Clear Calc Estimated GFR POC Glucose 125 H 119 H 102 Random Glucose Calcium 08/15/23 08/15/23 08:02 11:32 Hold Purple Top Anion Gap 8 L Estim Creat Clear Calc 110.9 Estimated GFR > 60 POC Glucose 111 Random Glucose 94 Calcium 8.5 D Assessment and Plan (1) Acute hypokalemia: Status: Acute (2) Alcohol withdrawal: Status: Acute Plan This is 37-year-old female with pertinent history of alcohol use disorder, mood disorder presents to the emergency department for concerns of alcohol withdrawal. # Alcohol withdrawal in a patient with alcohol use disorder Continue Phenobarb protocol Scoring still on CIWA Give extra doses of IM PHenobarb as needed Continue thiamine Consult Addiction Team # Hyponatremia, likely hypovolemic resolved IV crystalloid resuscitation # Hypokalemia due to GI losses: Repleted follow BMP # Hyperglycemia likely from alcohol Initiating Accu-Cheks with sliding scale insulin. 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 Quality Stroke Does the patient have a stroke diagnosis?: No VTE Prior VTE?: No VTE Risk Level:: Medical - moderate - high VTE Device Contraindication: Treatment Not Indicated VTE Drug Contraindication: N/A - Med Ordered
[2023-08-15] MEDS: Dextrose 5 % and Lactated Ring 1,000 ML 125 ML IVCONT (12:37)
--- NOTE | 2023-08-15 12:47 | P.EN_ITS ---
Event Note Date of Service: 08/15/23 Event Note: Addiction consult placed for patient with AUD Seen by medical transcription editor on 08/13. Declined any intervention or follow up Time Spent With Patient Time: Total time managing care of this patient today ____ minutes.
--- NOTE | 2023-08-15 15:20 | MHC.CM.PN ---
EMR reviewed and per MD rounds, pt is not medically cleared for D/C due to ETOH withdrawal. CM will continue to follow.
[2023-08-15 15:34] VITALS: BP 135/98; PULSE 106; RESP 97; TEMP 35.9; O2SAT 98
[2023-08-15 16:42] LABS: Glucose, Whole Blood 117 mg/dL (60-115)
[2023-08-15 19:52] VITALS: BP 143/84; PULSE 105; RESP 18; TEMP 36.6; O2SAT 100
[2023-08-15] MEDS: Melatonin 3 MG TABLET 6 MG PO (21:03)
[2023-08-15] MEDS: Famotidine 20 MG TABLET PO (21:06)
[2023-08-15 21:08] LABS: Glucose, Whole Blood 114 mg/dL (60-115)
[2023-08-16] MEDS: QUEtiapine Fumarate 100 MG TABLET PO (02:23)
[2023-08-16 03:26] VITALS: BP 117/59; PULSE 92; RESP 18; TEMP 36.7; O2SAT 96
[2023-08-16 07:07] VITALS: BP 118/77; PULSE 104; RESP 16; TEMP 36.3; O2SAT 97
[2023-08-16 07:21] LABS: Glucose, Whole Blood 134 mg/dL (60-115)
[2023-08-16 08:13] LABS: Hematocrit 38.4 % (37.0-47.0); Hemoglobin 12.7 g/dl (12.0-16.0); Mean Corpuscular HGB Conc 33.1 g/dl (31.0-35.0); Mean Corpuscular Hemoglobin 30.1 pg (27.0-33.0); Mean Platelet Volume 10.8 fL (9.4-12.3); Platelet Count 90 X10*3/uL (160-400); Red Blood Count 4.22 X10*6/uL (4.20-5.50); Red Cell Distribution Width 16.5 % (11.0-16.0); White Blood Count 5.2 X10*3/uL (4.8-10.8)
[2023-08-16 08:22] LABS: Anion Gap 8 (12-20); Blood Urea Nitrogen 6 mg/dL (9-16); Calcium 8.7 mg/dL (8.4-10.2); Carbon Dioxide 27 mmol/L (22-29); Chloride 106 mmol/L (96-108); Creatinine Clr Calc Pharmacy 120.3; Estimated Glomerular Filt Rate > 60; Glucose Random 123 mg/dL (60-115); Potassium 3.3 mmol/L (3.3-5.1); Sodium 138 mmol/L (135-145)
[2023-08-16] MEDS: 0.9 % Sodium Chloride Flush 3 ML SYRINGE IVFLUSH ×2 (08:44)
[2023-08-16] MEDS: PHENobarbitaL 15 MG TABLET PO (08:44)
[2023-08-16] MEDS: Thiamine HCL 100 MG TABLET PO (08:44)
--- NOTE | 2023-08-16 09:22 | PM.DS ---
DS: Providers Provider Date of Service: 08/16/23 Date of admission: 08/12/23 10:06 Primary care physician: Julio Cesar Mike MD Consults: 08/11/23 22:35 Addiction Medicine Routine Consulting Provider: Addiction Covering Reason for consultation: alcohol use disorder DS: Diagnosis Discharge Diagnosis (1) Acute hypokalemia: Status: Acute (2) Alcohol withdrawal: Status: Acute (3) Alcohol use disorder: Status: Acute (4) Mood disorder: Status: Acute DS: Summary Hospital Course Hospital Course: Admission note HPI This is 37-year-old female with pertinent history of alcohol use disorder, mood disorder presents to the emergency department for concerns of alcohol withdrawal. Patient states she drinks about 30 shots of vodka every day. Her last drink was about 15 hours prior to presentation. She has been having nausea, nonbloody emesis, sweating, anxiety and tremors. Does have a history of alcohol withdrawal. Also has a history of alcohol withdrawal seizures. Patient states he wants to get help with alcohol use and hence decided to present to the ER. Also has associated epigastric discomfort with symptoms of gastroesophageal reflux disease. No fever, chills, chest discomfort, palpitations, shortness of breath, changes in urinary or bowel habits. In the emergency department, CIWA found to be elevated and patient was initiated on phenobarb protocol Hospital course # Alcohol withdrawal in a patient with alcohol use disorder Treated with Phenobarb protocol and received extra doses of IM PHenobarb as needed with good response. started on thiamine as she was evaluated by Addiction Team. she is interested in alcohol use disorder treatment; will be started on Naltrexone. To be followed as outpatient # Hyponatremia at presentation, likely hypovolemic resolved with IV crystalloid resuscitation. # Hypokalemia due to GI losses Repleted with good response # Hyperglycemia likely from alcohol A1c 5.3 and no diabetes # Alcoholic gastritis famotidine # Elevated transaminases Likely alcoholic fatty liver disease Outpatient follow-up with repeat LFT and primary care evaluation. We advise you complete abstinence from alcohol Start Thiamine supplement Atarax for anxiety and Seroquel at bedtime Naltrexone to help you quit alcohol Follow up with PCP within the next 2-4 weeks To follow Liver function test in 1 week Time Attestation Discharge coordination time: Greater than 30 minutes Quality: Safe Use of Opioids Does Pt have an Active Cancer Diagnosis on the Problem List?: No Quality: Stroke Does the patient have a stroke diagnosis?: No Physical Exam Vital Signs: Vital Signs: Last Vital Signs Temp 97.3 F 08/16/23 07:07 Pulse 104 H 08/16/23 07:07 Resp 16 08/16/23 07:07 BP 118/77 08/16/23 07:07 Pulse Ox 97 08/16/23 07:07 O2 Del Method Room Air 08/16/23 07:07 BMI result Body Mass Index 31.8 Const: Other: Constitutional : alert , interactive, not in distress Neck : Normal inspection, Supple Cardiovascular : RRR, no JVP, no lower extremity edema Respiratory : good bilateral air entry, no crackles, wheezes or rhonchi Gastrointestinal: soft, lax, Normal bowel sounds, Non tender Skin : Warm, Dry Neurological : Alert & oriented to self and place, No focal deficit DS: Data Data Completed and Pending Labs on day of discharge: Laboratory Results - last 24 hr 08/15/23 08/15/23 08/15/23 11:32 16:13 20:56 WBC RBC Hgb Hct MCV MCH MCHC RDW Plt Count MPV Absolute Nucleated RBC Nucleated RBC % (auto) Sodium Potassium Chloride Carbon Dioxide Anion Gap BUN Creatinine Estim Creat Clear Calc Estimated GFR POC Glucose 111 117 H 114 Random Glucose Calcium 08/16/23 08/16/23 07:16 07:33 WBC 5.2 RBC 4.22 Hgb 12.7 Hct 38.4 MCV 91.0 MCH 30.1 MCHC 33.1 RDW 16.5 H Plt Count 90 L MPV 10.8 Absolute Nucleated RBC 0.000 Nucleated RBC % (auto) 0.0 Sodium 138 Potassium 3.3 Chloride 106 Carbon Dioxide 27 Anion Gap 8 L BUN 6 L Creatinine 0.71 Estim Creat Clear Calc 120.3 Estimated GFR > 60 POC Glucose 134 H Random Glucose 123 H Calcium 8.7 Imaging Chest x-ray: Radiologist's impression: ITS Impressions Chest X-Ray 08/11/23 22:10 IMPRESSION: Right IJ central venous catheter tip overlying the proximal right atrium. No pneumothorax. Hypoexpanded lungs with basilar atelectasis. Discharge Plan Discharge Anticipated Discharge Date/Time: 08/16/23 09:13 Patient Disposition: Home, Self-Care Discharge Diagnosis: Alcohol withdrawal Referrals: Julio Cesar Mike MD [Primary Care Provider] - 1 Week Discharge Medications: New hydroxyzine HCl 50 mg Tablet 50 mg PO Q6H PRN (Reason: Anxiety/Restlessness) Qty: 60 1RF thiamine mononitrate (vit B1) 100 mg Tablet 100 mg PO DAILY Qty: 60 0RF naltrexone 50 mg tablet 50 mg PO DAILY Qty: 90 0RF Continued multivitamin Tablet 1 tab PO DAILY gabapentin 300 mg capsule 300 mg PO TID quetiapine 100 mg tablet 100 mg PO BEDTIME PRN (Reason: Anxiety) Qty: 30 0RF Discharge Orders: Discharge Order (Routine); Ordered 08/16/23 Ordered By: Tala Cowan Diet: Advance to usual diet Activity on Discharge: As tolerated Stand Alone Forms: Patient Portal Discharge page, Work/School Release Other Ambulatory Orders: Liver Panel (Routine) Timeframe: 1 Week Facility: [facility] - Location: Laboratory Ordered By: Tala Cowan Care Plan Goals: Read below Health Concerns: Read below Plan of Treatment: Read below Assessment: You were treated for alcohol withdrawal with PHenobarbital protocol with good response. We advise you complete abstinence from alcohol Start Thiamine supplement Atarax for anxiety and Seroquel at bedtime Naltrexone to help you quit alcohol Follow up with PCP within the next 2-4 weeks To follow Liver function test in 1 week
--- NOTE | 2023-08-16 09:42 | MHC.CM.PN ---
IMM given 08/16. Pt is medically cleared for D/C home self-care, one of the pts friends will be picking her up at 2pm today.
[2023-08-16] MEDS: hydrOXYzine HCL 50 MG TABLET PO (10:27)
[2023-08-16 11:08] LABS: Glucose, Whole Blood 116 mg/dL (60-115)
== END 2023-08-16 14:51 | disposition home or self-care (01) | DRG 241 ==
LOC: HO.ED 20:06 → HO.EDOVER 22:50 → HO.S3 08-12 18:27 → HO.EDOVER 08-12 18:34 → HO.IMC 08-12 19:33
PROVIDERS: Physician Assistant; Admitting Provider Student in an Organized Health Care Education/Training Program; Emergency Provider Internal Medicine; PCP Hospitalist; Visit Provider Student in an Organized Health Care Education/Training Program
DX: K29.20 Alcoholic gastritis without bleeding (principal); F10.131 Alcohol abuse with withdrawal delirium; E83.51 Hypocalcemia; E87.1 Hypo-osmolality and hyponatremia; K70.0 Alcoholic fatty liver; E86.1 Hypovolemia; R73.9 Hyperglycemia, unspecified; E86.0 Dehydration; Y90.8 Blood alcohol level of 240 mg/100 ml or more; E87.6 Hypokalemia; Z20.822 Contact with and (suspected) exposure to COVID-19; Z79.899 Other long term (current) drug therapy
CPT/HCPCS: 36415; 71045; 80048; 80053; 80076; 80307; 82550; 82947; 83036; 83690; 83735; 83930; 83935; 84300; 85025; 85027; 87635; 99222; 99285; J1650; J2060; J2405; J2560; J3480

== ENCOUNTER → 2023-08-11 22:32 | Outpatient (BNV) | payer OTHER, SELFPAY | PROVIDERS: Admitting Provider Student in an Organized Health Care Education/Training Program; Emergency Provider Internal Medicine; PCP Hospitalist; Visit Provider Student in an Organized Health Care Education/Training Program | DX: E87.6 Hypokalemia (principal); F10.939 Alcohol use, unspecified with withdrawal, unspecified; F39 Unspecified mood [affective] disorder | CPT/HCPCS: 99223; 99232; 99233; 99239 ==